=== PATIENT | male | born 1975 | race African-American/Black ===

== ENCOUNTER 2019-05-23 17:15 | Emergency (ER) | payer OTHER ==
[~2019-05-23] VITALS: Ht 188 cm; Wt 80.0 kg
[2019-05-23] MEDS ORDERED: KETOROLAC 60MG/2ML VIAL IM ONE (18:45)
[2019-05-23] MEDS ORDERED: ACETAMINOPHEN 325MG TABLET PO ONE (19:15)
[2019-05-23] MEDS ORDERED: CEFTRIAXONE SODIUM 250 MG/VIAL IM ONE (19:30)
[2019-05-23] MEDS ORDERED: HYDROCODONE/ACETAMINOPHEN 5/325MG TABLET PO ONE (19:30)
[2019-05-23] MEDS ORDERED: BACITRACIN ZINC OINT UDPKT TOP ONE (20:00)
[2019-05-23 20:13] VITALS: BP 132/93
[2019-05-23] MEDS ORDERED: BACITRACIN ZINC OINT UDPKT TOP NR (20:15)
== END 2019-05-23 20:13 | disposition home or self-care (01) ==
LOC: ER 17:15
DX: S91.011A Laceration without foreign body, right ankle, initial encounter (principal); X95.9XXA Assault by unspecified firearm discharge, initial encounter; Y93.89 Activity, other specified; Y92.89 Other specified places as the place of occurrence of the external cause
CPT/HCPCS: 73610; 73630; 96372; 99283; J0696; Z7610; J1885